=== PATIENT | female | born 2000 | race African-American/Black ===

== ENCOUNTER 2024-06-13 20:33 | Inpatient (IN) | payer MEDICAID, OTHER, SELFPAY ==
[2024-06-13 21:09] VITALS: BP 110/80; BP 119/71; PULSE 80; PULSE 90; RESP 18; TEMP 36.8; O2SAT 98; BMI 42.6
--- NOTE | 2024-06-13 21:27 | MHC.EDTECH ---
Belongings done with security: shirt, pants, sandals, cellphone - into locker 11. Belongings list says locker #5 but this was occupied.
--- NOTE | 2024-06-13 21:30 | ED.PSYCH ---
HPI - Psych General Chief Complaint: Psychiatric Symptoms Stated Complaint: psychotic outburst Time Seen by Provider: 06/13/24 21:12 Source: patient and EMS Mode of arrival: EMS Limitations: no limitations History of Present Illness ED Provider: Dr. Nicky Olivares HPI Narrative: Patient comes to the emergency room on a Section 12. Patient is on a Kike's orders, patient is not taking her medication. Patient is decompensated. Patient is not sure why she is here, talking a lot not making much sense, refusing labs, stating that she wants to go outside to smoke. Related Data Allergies Allergy/AdvReac Type Severity Reaction Status Date / Time No Known Allergies Allergy Verified 06/13/24 21:11 Review of Systems Review of Systems: Constitutional : No Weight loss, No Fever, No Chills, No Night Sweats, No Fatigue, No Malaise ENT/Mouth : No Hearing loss, No Ear Pain, No Nasal Congestion, No Sinus Pain, No Hoarseness, No sore throat, No Rhinorrhea, No Swallowing Difficulty Eyes: No Eye Pain, No Swelling, No Redness, No Foreign Body, No Discharge, No Vision Changes Cardiovascular : No Chest Pain, No SOB, No Dyspnea on Exertion, No Orthopnea, No Edema, No Palpitations Respiratory : No Cough, No Sputum, No Wheezing, No Smoke Exposure, No Dyspnea Gastrointestinal : No Nausea, No Vomiting, No Diarrhea, No Constipation, No abdominal Pain, No Hematochezia, No Melena Genitourinary : no irregular bleeding, No Dysuria, No Urinary Frequency, No Hematuria, No Urinary Incontinence, No Urgency, No Flank Pain, No Urinary Flow Changes, No Hesitancy Musculoskeletal : No joint pain, No Myalgias, No Joint Swelling Skin : No Skin Lesions, No rash Neuro : No Weakness, No Numbness, No Paresthesias, No Loss of Consciousness, No Dizziness, No Headache Psych : Denies SI or HI, patient is not sure why she is here, per EMS/PD, patient acutely decompensated Heme/Lymph: No Bruising, No Bleeding,No Lymphadenopathy Endocrine : No Polyuria, No Polydipsia, No Temperature Intolerance PMFSH Past Medical History Medical History Schizophrenia Social History Social History Do you have a plan to hurt others: No Plan Physical Exam Vital Signs: Vital Signs: Last Vital Signs Temp 98.3 F 06/13/24 21:09 Pulse 80 06/13/24 21:09 Resp 18 06/13/24 21:09 BP 119/71 06/13/24 21:09 Pulse Ox 98 06/13/24 21:09 O2 Del Method Room Air 06/13/24 21:09 BMI result Body Mass Index 42.6 Const: Other: Appearance: Alert. Oriented X3. No acute distress. Eyes: Pupils equal, round and reactive to light. ENT: Pharynx normal. Neck: Normal inspection. Neck supple. No lymph nodes noted. No crepitus CVS: Normal heart rate and rhythm. Pulses normal. Normal S1 and S2 Respiratory: No respiratory distress. Breath sounds normal. No Wheezing. No rales Abdomen: Soft and nontender. No rigidity. No distention. Skin: Skin warm and dry. Normal skin color. Normal skin turgor. Extremities: No lower extremity edema. No Lacerations. No Rash Neuro: Oriented X 3. No motor deficit. No sensory deficit. Moving all extremities. No slurred speech. CN 2 through 12 grossly intact Psych: calm, cooperative, normal affect Course Course Course Narrative: -patient does not want to give urine sample, does not want to get blood drawn. -insistent going outside to smoke. Patient declined nicotine gum or patch. -eventually, we will try to convince the patient takes medications p.o.. So far, patient is not compliant but she is not aggressive either. Very hyperverbal. -patient is on a Section 12 -all labs pending -care team consult pending Medical Decision Making Differential Diagnosis Differential Diagnoses: The differential diagnosis associated with the presentation includes (Schizophrenia, bipolar disorder) Admission/Observation Consideration of admission/observation: Escalation of care including admission/observation considered (Patient is on a Section 12, patient's seems acutely decompensated, will likely need inpatient level of care) Discharge Plan Discharge Clinical Impression: Chronic schizophrenia Patient Disposition: Still a Patient Print Language: Salvadorean
[2024-06-13 22:03] LABS: Appearance Urine Clear; Color Urine Yellow; Glucose Urine UA Negative (Negative); Leukocyte Esterase Urine Small (1+) (Negative); Nitrite Urine Negative (Negative); UMIC TRIGGER UACC YES; Urine Blood Negative (Negative); Urine Ketones Negative (Negative); Urine Protein Negative (Neg-Trace)
[2024-06-13 22:04] LABS: UPreg QC Valid YES; Urine Pregnancy NEGATIVE (NEGATIVE)
[2024-06-13 22:08] LABS: Bacteria Urine 1+ (None Seen); Hyaline Casts Urine 0-2 /LPF (0-2); RBC Urine 0-2 /HPF (0-2); UACC Culture Trigger YES
[2024-06-13 22:10] LABS: Amphetamine Screen Urine Not Detected (Not Detect); Barbiturates, Urine Not Detected (Not Detect); Benzodiazepines Screen Urine Not Detected (Not Detect); Buprenorphine Scr Not Detected (Not Detect); Cannabinoid Screen Urine Not Detected (Not Detect); Cocaine Screen Urine Not Detected (Not Detect); Fentanyl, urine Not Detected (Not Detect); Methadone Screen, Urine Not Detected (Not Detect); Opiate Screen Urine Not Detected (Not Detect); Oxycodone Screen Urine Not Detected (Not Detect); Phencyclidine Screen Urine Not Detected (Not Detect)
--- NOTE | 2024-06-13 22:20 | MHC.CARE ---
T/W spoke with Carmela (clinical director at [facility]) who reports Pt was at their [facility] since 06/08/24 . She stepped down from the [facility] after a long stay there. Pt has been med non compliant since 06/09. She is on a [facility] order. Carmela reports Pt. was very erratic today with a very labile affect. She reportedly would go from laughing hysterically to crying. She was also verbally aggressive. Carmela said [facility] tried to do a direct admit but there was an insurance issue which prevented that from happening , so she was sent here.
[2024-06-13] MEDS: HaloperidoL 5 MG TABLET PO (23:22)
[2024-06-13] MEDS: diphenhydrAMINE HCL 25 MG CAPSULE 50 MG PO (23:22)
[2024-06-13] MEDS: LORazepam 1 MG TABLET 2 MG PO (23:22)
--- NOTE | 2024-06-13 23:51 | MHC.EDTECH ---
pt refusing labs at this time.
--- NOTE | 2024-06-14 03:06 | MHC.EDTECH ---
pt continues to refuse labs.
[2024-06-14 06:24] VITALS: RESP 18
--- NOTE | 2024-06-14 07:38 | PC.NURSE ---
Assumed care of patient at 0645, patient appears to be in no apparent distress this am, sleeping, respirations even and unlabored. Per previous RN, patient was refusing labs and urine, pt also refusing to take medications. Patient comes from [facility] long-term. Continue plan of care for med clearance and CARE team milagros
--- NOTE | 2024-06-14 08:46 | PC.NURSE ---
pt continues to refuse blood work and urine sample
--- NOTE | 2024-06-14 10:31 | MHC.CARE ---
Addendum entered by Taj Miles, MS 06/14/24 10:32: Disregard initial note. Original Note: Pt will be a dual dx bedsearch
--- NOTE | 2024-06-14 12:05 | PC.NURSE ---
This RN attempted to speak with patient, patient refusing to engage
--- NOTE | 2024-06-14 12:55 | MHC.CARE ---
CARE Team calls [facility] (09) to request details on pt?s presentation and to obtain the assessment from [place] and any assessment [facility] has done.? [facility] reports they have no documentation they can provide other than a note.? At 1210, CARE Team called [facility] to request the documentation that [facility] had stated, during previous calls, that they would send.? [facility] reports that they will be faxing that information over. At 1240, CARE Team called [facility] to request the documentation that [facility] had stated, during previous calls that they would send.? [facility] reports that they faxed the information (None received), will be faxing that information over.
[2024-06-14 13:07] LABS: Basophils Percent Auto 0.4 % (0-2); Eosinophils Percent Auto 0.1 % (0-4); Hematocrit 41.5 % (37.0-47.0); Hemoglobin 13.8 g/dl (12.0-16.0); Imm Gran Abs Auto 0.03 X10*3/uL (0.00-0.03); Imm Gran Pct Auto 0.4 % (0.0-0.4); Lymphocytes Absolute Auto 2.5 X10*3/uL (1.2-4.9); Lymphocytes Percent Auto 35.8 % (20-40); MANUAL DIFF FLAG SCAN; Mean Corpuscular HGB Conc 33.3 g/dl (31.0-35.0); Mean Corpuscular Hemoglobin 30.3 pg (27.0-33.0); Mean Corpuscular Volume 91.2 fL (80.0-98.0); Mean Platelet Volume 11.6 fL (9.4-12.3); Monocytes Absolute Auto 0.6 X10*3/uL (0.1-1.2); Monocytes Percent Auto 9.1 % (2-11); NRBC Pct Auto 0.3 /100WBC (0.0-0.2); Neutrophils Absolute Auto 3.7 x10*3/uL (2.0-8.3); Neutrophils Percent Auto 54.2 % (45-73); PLT CLUMP 1; Red Blood Count 4.55 X10*6/uL (4.20-5.50); Red Cell Distribution Width 12.9 % (11.0-16.0); SCAN SMEAR FLAG 1
[2024-06-14 13:08] LABS: White Blood Count 6.8 X10*3/uL (4.8-10.8)
[2024-06-14 13:15] LABS: Alanine Aminotransferase 113 U/L (0-31); Albumin Level 4.1 g/dL (3.5-5.0); Alkaline Phosphatase 112 U/L (39-117); Anion Gap 15 (12-20); Aspartate Amino Transferase 54 U/L (5-31); Bilirubin Direct 0.1 mg/dL (0.0-0.5); Bilirubin Total 0.3 mg/dL (0.0-1.0); Blood Urea Nitrogen 9 mg/dL (9-16); Calcium 9.6 mg/dL (8.4-10.2); Carbon Dioxide 24 mmol/L (22-29); Chloride 105 mmol/L (96-108); Creatinine Clr Calc Pharmacy 162.7; Estimated Glomerular Filt Rate > 60; Ethanol < 10 mg/dL; Glucose Random 90 mg/dL (60-115); Potassium 4.4 mmol/L (3.3-5.1); Sodium 140 mmol/L (135-145); Total Protein 7.3 g/dL (6.5-8.0)
[2024-06-14 13:25] LABS: Platelet Count 230 X10*3/uL (160-400); SLIDE REVIEW VERIFIED
--- NOTE | 2024-06-14 13:44 | MHC.CARE ---
Pt will be a bedsearch
--- NOTE | 2024-06-14 13:46 | ECG_ITS ---
Test Reason : med clearance Blood Pressure : / mmHG Vent. Rate : 099 BPM Atrial Rate : 099 BPM P-R Int : 144 ms QRS Dur : 074 ms QT Int : 340 ms P-R-T Axes : 065 055 013 degrees QTc Int : 436 ms Sinus rhythm with marked sinus arrhythmia Otherwise normal ECG No previous ECGs available Referred By: Nicky Olivares Electronically Signed By:BLANCA RICH MD
[2024-06-14 14:31] VITALS: BP 134/74; PULSE 68; RESP 16; TEMP 36.7; O2SAT 97
--- NOTE | 2024-06-14 14:32 | PC.NURSE ---
Pt agreeable to EKG. Pt is calm and cooperative, no apparent distress
[2024-06-14 16:04] VITALS: BP 129/84; PULSE 102; O2SAT 98; BMI 38.3
--- NOTE | 2024-06-14 16:09 | PHA.MEDREC ---
Pharmacy Consult ? Medication Reconciliation Pharmacy has reviewed the medication reconciliation done by nursing. Received faxed med list from [facility] and made corrections. Chlorpromazine 100 mg q6h prn agitation and acetaminophen 650 mg q4h prn mild pain.
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
[2024-06-14 20:00] VITALS: BP 142/73; PULSE 108; TEMP 36.5; O2SAT 100
[2024-06-14] MEDS: Benztropine Mesylate 1 MG TABLET PO (21:22)
--- NOTE | 2024-06-15 01:28 | PC.NURSE ---
Patient has been self dialoguing and/or responding to AH and/or VH since 1999 on 06/14. Patient has been yelling and swearing. but refused all offered PRNs.
[2024-06-15 08:00] VITALS: BP 134/80; PULSE 100; TEMP 36.1; O2SAT 99
[2024-06-15] MEDS: guanFACINE HCl ER 1 MG TAB.ER.24H PO (09:16)
[2024-06-15] MEDS: chlorproMAZINE HCl 100 MG TABLET PO (14:11)
--- NOTE | 2024-06-15 15:48 | PC.NURSE ---
LATE ENTRY 06/14/24: Taylor signed a three day notice on day of admission, which will be up on 06/20/24.
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
[2024-06-15 20:00] VITALS: RESP 14
[2024-06-15] MEDS: cloZAPine 25 MG TABLET 50 MG PO (22:04)
[2024-06-15] MEDS: Benztropine Mesylate 1 MG TABLET PO (22:04)
[2024-06-16] MEDS: buPROPion HCl XL 150 MG TAB.ER.24H PO (10:36)
[2024-06-16] MEDS: guanFACINE HCl ER 1 MG TAB.ER.24H PO (10:36)
--- NOTE | 2024-06-16 11:27 | HO.PSYCHPN ---
Subjective Subjective Date of Service: 06/16/24 Reason For Visit: schizophrenia Interim History: Patient seen. She remains psychotic. Yelling and screaming intermittently. Reports she continues to have AH. She is internally preoccupied. She has been taking her medications. She has a community Kike's order. Review of Systems Review of Systems Constitutional : No Weight loss, No Fever, No Chills, No Night Sweats, No Fatigue, No Malaise ENT/Mouth : No Hearing loss, No Ear Pain, No Nasal Congestion, No Sinus Pain, No Hoarseness, No sore throat, No Rhinorrhea, No Swallowing Difficulty Eyes: No Eye Pain, No Swelling, No Redness, No Foreign Body, No Discharge, No Vision Changes Cardiovascular : No Chest Pain, No SOB, No Dyspnea on Exertion, No Orthopnea, No Edema, No Palpitations Respiratory : No Cough, No Sputum, No Wheezing, No Smoke Exposure, No Dyspnea Gastrointestinal : No Nausea, No Vomiting, No Diarrhea, No Constipation, No abdominal Pain, No Hematochezia, No Melena Genitourinary : no irregular bleeding, No Dysuria, No Urinary Frequency, No Hematuria, No Urinary Incontinence, No Urgency, No Flank Pain, No Urinary Flow Changes, No Hesitancy Musculoskeletal : No joint pain, No Myalgias, No Joint Swelling Skin : No Skin Lesions, No rash Neuro : No Weakness, No Numbness, No Paresthesias, No Loss of Consciousness, No Dizziness, No Headache Psych : Denies SI or HI, patient is not sure why she is here, per EMS/PD, patient acutely decompensated Heme/Lymph: No Bruising, No Bleeding,No Lymphadenopathy Endocrine : No Polyuria, No Polydipsia, No Temperature Intolerance Yes all other systems are reviewed and are negative Mental Status Exam Mental Status Exam Patient Appearance: Fatigued Patient Orientation: Person, Place and Situation Level of Consciousness: Alert Patient Behavior: Talkative, Distractible, Good Eye Contact and Impulsive Mood Description: Labile Affect Description: Labile Patient Cognition Impaired: Yes Ability to Follow Directions: Fair Speech Pattern: Spontaneous Speech Memory Description: Remote Impaired Hallucinations: Auditory Delusions: Paranoid Ideation Thought Process: Distracted Thought Content: positive for Preoccupation, positive for Thought Blocking and positive for Slowed Thinking Diagnostics Vital Signs (24Hr): Vital Signs - 24 hr 06/15/24 20:00 Respiratory Rate 14 BMI result Body Mass Index 38.3 Labs 06/14/24 12:53 06/14/24 12:53 Labs: Laboratory Results - last 48 hr 06/14/24 12:53 WBC 6.8 RBC 4.55 Hgb 13.8 Hct 41.5 MCV 91.2 MCH 30.3 MCHC 33.3 RDW 12.9 Plt Count 230 MPV 11.6 Immature Gran % (Auto) 0.4 Neut % (Auto) 54.2 Lymph % (Auto) 35.8 [place] % (Auto) 9.1 Eos % (Auto) 0.1 Baso % (Auto) 0.4 Lymph # (Auto) 2.5 [place] # (Auto) 0.6 Eos # (Auto) 0.0 Baso # (Auto) 0.0 Abs Immat Gran (auto) 0.03 Absolute Neuts (auto) 3.7 Absolute Nucleated RBC 0.020 H Nucleated RBC % (auto) 0.3 H Smear Tech's Comments VERIFIED Sodium 140 Potassium 4.4 Chloride 105 Carbon Dioxide 24 Anion Gap 15 BUN 9 Creatinine 0.75 Estim Creat Clear Calc 162.7 Estimated GFR > 60 Random Glucose 90 Calcium 9.6 Total Bilirubin 0.3 Direct Bilirubin 0.1 AST 54 H ALT 113 H Alkaline Phosphatase 112 Total Protein 7.3 Albumin 4.1 Ethyl Alcohol < 10 Medications Medications Current Medications Acetaminophen (Acetaminophen 325 Mg Tablet) 650 mg PO Q6H PRN PRN Reason: Headache/Pain Mild Scale (1-3) Al Hydroxide/Mg Hydroxide (Magnesium Hydrox/Alum Hydrox 30 Ml Oral.Susp) 30 ml PO Q6H PRN PRN Reason: Heartburn/Nausea Benztropine Mesylate (Benztropine Mesylate 1 Mg Tablet) 1 mg PO BEDTIME SALIMA Last Admin: 06/15/24 22:04 Dose: 1 mg Bupropion HCl (Bupropion Hcl Xl 150 Mg Tab.Er.24h) 150 mg PO DAILY SALIMA Last Admin: 06/16/24 10:36 Dose: 150 mg Chlorpromazine HCl (Chlorpromazine Hcl 100 Mg Tablet) 100 mg PO Q6H PRN PRN Reason: AGITATION Last Admin: 06/15/24 14:11 Dose: 100 mg Clozapine (Clozapine 25 Mg Tablet) 50 mg PO BEDTIME SALIMA Last Admin: 06/15/24 22:04 Dose: 50 mg Diphenhydramine HCl (Diphenhydramine Hcl 25 Mg Capsule) 50 mg PO Q6H PRN PRN Reason: agitation Guanfacine HCl (Guanfacine Hcl Er 1 Mg Tab.Er.24h) 1 mg PO DAILY SALIMA Last Admin: 06/16/24 10:36 Dose: 1 mg Magnesium Hydroxide (Milk Of Magnesia 30 Ml Oral.Susp) 30 ml PO DAILY PRN PRN Reason: Constipation Nicotine (Nicotine 21 Mg Patch.Td24) 21 mg TRANSDERMA DAILY PRN PRN Reason: nicotine cravings Nicotine Polacrilex (Nicotine Polacrilex 2 Mg Gum) 4 mg BUCCAL Q2H PRN PRN Reason: Nicotine Cravings Trazodone HCl (Trazodone Hcl 50 Mg Tablet) 50 mg PO BEDTIME MRX1 PRN PRN Reason: Insomnia Allergies Allergies Allergy/AdvReac Type Severity Reaction Status Date / Time No Known Allergies Allergy Verified 06/13/24 21:11 Assessment & Plan Assessment & Plan (1) Schizophrenia: Status: Acute Code(s): F20.9 - Schizophrenia, unspecified Plan Schizophrenia. Plan: Admit, CV, TDN, 15 minute checks Re-establish regime Clozapine titration 50 mg to begin with today. Collateral contact 06/16: Increase Clozaril to 25 mg in AM and 50 mg HS starting tomorrow. Thorazine as back up (Thorazine on Kike's court order) if patient refuses PO Clozaril. Reason for continued inpatient stay Substantial Risk for: inability to function and rapid decompensation Time Spent With Patient Time: Total time managing care of this patient today ____ minutes.
[2024-06-16] MEDS: cloZAPine 25 MG TABLET 50 MG PO (20:21)
[2024-06-16] MEDS: Benztropine Mesylate 1 MG TABLET PO (20:22)
[2024-06-16 20:39] VITALS: BP 121/66; PULSE 72; RESP 15; TEMP 37.1; O2SAT 97
[2024-06-17 08:56] VITALS: BP 124/74; PULSE 76; RESP 16; TEMP 37.1; O2SAT 98
[2024-06-17] MEDS: buPROPion HCl XL 150 MG TAB.ER.24H PO (09:11)
[2024-06-17] MEDS: guanFACINE HCl ER 1 MG TAB.ER.24H PO (09:11)
[2024-06-17] MEDS: cloZAPine 25 MG TABLET PO (09:11)
--- NOTE | 2024-06-17 11:07 | P.PNPSI_ITS ---
Subjective Subjective Date of Service: 06/17/24 Reason For Visit: schizophrenia Interim History: Patient seen. She remains psychotic. Stood for a good part of the shift in front of the nurses station. Noted to be self dialoguing, laughing loudly at times, irritable at times asking for a sandwich because there was an issue with her lunch. Argumentative. Then pleasant and calm at other times. Has been compliant with meds. Hopeful they will help. Reports AH. She is internally preoccupied. She has a community [employer] order. Review of Systems Review of Systems Constitutional : No Weight loss, No Fever, No Chills, No Night Sweats, No Fatigue, No Malaise ENT/Mouth : No Hearing loss, No Ear Pain, No Nasal Congestion, No Sinus Pain, No Hoarseness, No sore throat, No Rhinorrhea, No Swallowing Difficulty Eyes: No Eye Pain, No Swelling, No Redness, No Foreign Body, No Discharge, No Vision Changes Cardiovascular : No Chest Pain, No SOB, No Dyspnea on Exertion, No Orthopnea, No Edema, No Palpitations Respiratory : No Cough, No Sputum, No Wheezing, No Smoke Exposure, No Dyspnea Gastrointestinal : No Nausea, No Vomiting, No Diarrhea, No Constipation, No abdominal Pain, No Hematochezia, No Melena Genitourinary : no irregular bleeding, No Dysuria, No Urinary Frequency, No Hematuria, No Urinary Incontinence, No Urgency, No Flank Pain, No Urinary Flow Changes, No Hesitancy Musculoskeletal : No joint pain, No Myalgias, No Joint Swelling Skin : No Skin Lesions, No rash Neuro : No Weakness, No Numbness, No Paresthesias, No Loss of Consciousness, No Dizziness, No Headache Psych : Denies SI or HI, patient is not sure why she is here, per EMS/PD, patient acutely decompensated Heme/Lymph: No Bruising, No Bleeding,No Lymphadenopathy Endocrine : No Polyuria, No Polydipsia, No Temperature Intolerance Yes all other systems are reviewed and are negative Mental Status Exam Mental Status Exam Patient Appearance: Fatigued Patient Orientation: Person, Place and Situation Level of Consciousness: Alert Patient Behavior: Talkative, Distractible, Good Eye Contact and Impulsive Mood Description: Labile Affect Description: Labile Patient Cognition Impaired: Yes Ability to Follow Directions: Fair Speech Pattern: Spontaneous Speech Memory Description: Remote Impaired Diagnostics Vital Signs (24Hr): Vital Signs - 24 hr 06/16/24 20:39 06/17/24 08:56 Temperature 98.7 F 98.7 F Pulse Rate 72 76 Respiratory Rate 15 16 Blood Pressure 121/66 124/74 Pulse Oximetry 97 98 Oxygen Delivery Method Room Air BMI result Body Mass Index 38.3 Labs 06/14/24 12:53 06/14/24 12:53 Medications Medications Current Medications Acetaminophen (Acetaminophen 325 Mg Tablet) 650 mg PO Q6H PRN PRN Reason: Headache/Pain Mild Scale (1-3) Al Hydroxide/Mg Hydroxide (Magnesium Hydrox/Alum Hydrox 30 Ml Oral.Susp) 30 ml PO Q6H PRN PRN Reason: Heartburn/Nausea Benztropine Mesylate (Benztropine Mesylate 1 Mg Tablet) 1 mg PO BEDTIME [facility] Last Admin: 06/16/24 20:22 Dose: 1 mg Bupropion HCl (Bupropion Hcl Xl 150 Mg Tab.Er.24h) 150 mg PO DAILY [facility] Last Admin: 06/17/24 09:11 Dose: 150 mg Chlorpromazine HCl (Chlorpromazine Hcl 100 Mg Tablet) 100 mg PO Q6H PRN PRN Reason: AGITATION Last Admin: 06/15/24 14:11 Dose: 100 mg Chlorpromazine HCl (Chlorpromazine Hcl 25 Mg/Ml Ampul) 50 mg IM BID PRN PRN Reason: Refusal of PO Clozapine Clozapine (Clozapine 25 Mg Tablet) 50 mg PO BEDTIME [facility] Last Admin: 06/16/24 20:21 Dose: 50 mg Clozapine (Clozapine 25 Mg Tablet) 25 mg PO DAILY [facility] Last Admin: 06/17/24 09:11 Dose: 25 mg Diphenhydramine HCl (Diphenhydramine Hcl 25 Mg Capsule) 50 mg PO Q6H PRN PRN Reason: agitation Guanfacine HCl (Guanfacine Hcl Er 1 Mg Tab.Er.24h) 1 mg PO DAILY [facility] Last Admin: 06/17/24 09:11 Dose: 1 mg Magnesium Hydroxide (Milk Of Magnesia 30 Ml Oral.Susp) 30 ml PO DAILY PRN PRN Reason: Constipation Nicotine (Nicotine 21 Mg Patch.Td24) 21 mg TRANSDERMA DAILY PRN PRN Reason: nicotine cravings Nicotine Polacrilex (Nicotine Polacrilex 2 Mg Gum) 4 mg BUCCAL Q2H PRN PRN Reason: Nicotine Cravings Trazodone HCl (Trazodone Hcl 50 Mg Tablet) 50 mg PO BEDTIME MRX1 PRN PRN Reason: Insomnia Allergies Allergies Allergy/AdvReac Type Severity Reaction Status Date / Time No Known Allergies Allergy Verified 06/13/24 21:11 Assessment & Plan Assessment & Plan (1) Schizophrenia: Status: Acute Code(s): F20.9 - Schizophrenia, unspecified Plan Schizophrenia. Plan: Admit, CV, TDN, 15 minute checks Re-establish regime Clozapine titration 50 mg to begin with today. Collateral contact 06/16: Increase Clozaril to 25 mg in AM and 50 mg HS starting tomorrow. Thorazine as back up (Thorazine on [place] [address] order) if patient refuses PO Clozaril. : Continue titration of Clozaril per primary team. Continue current management and treatment plan. Reason for continued inpatient stay Substantial Risk for: inability to function and rapid decompensation Time Spent With Patient Time: Total time managing care of this patient today ____ minutes.
[2024-06-17 20:00] VITALS: BP 138/74; PULSE 118; RESP 15; TEMP 36.9; O2SAT 99
[2024-06-17] MEDS: Benztropine Mesylate 1 MG TABLET PO (20:20)
[2024-06-17] MEDS: cloZAPine 25 MG TABLET 50 MG PO (20:20)
[2024-06-18 08:29] VITALS: BP 99/66; PULSE 98; RESP 16; TEMP 36.5; O2SAT 99
[2024-06-18] MEDS: buPROPion HCl XL 150 MG TAB.ER.24H PO (09:29)
[2024-06-18] MEDS: guanFACINE HCl ER 1 MG TAB.ER.24H PO (09:29)
[2024-06-18] MEDS: cloZAPine 25 MG TABLET PO (09:29)
--- NOTE | 2024-06-18 16:47 | HO.PSYCHPN ---
Subjective Subjective Date of Service: 06/18/24 Reason For Visit: schizophrenia Subjective Notes: Conditional Voluntary and 3 Day Healthcare Proxy: No Guardianship: Yes Medical Problems Affecting Mental Status: No Interim History: Pt discussed TDN. She does not believe today is [place] Day, a holiday, so asked that it be proven on the internet, which was completed. Demanding to leave on 06/30, wanting her own apartment, no m[facility]p. Difficult to communicate with, demanding. Pt has an ACCS Team who team is attempting to contact. Will increase Clozapine at hs which she agrees with. Medication Compliance: Intermittent Side effects from medications: No Attending Groups: Intermittent Review of Systems Acute medical concerns: No Medical Review of Systems: unchanged Review of Systems Review of Systems Denies Mental Status Exam Mental Status Exam Patient Appearance: Fatigued Patient Orientation: Person, Place and Situation Level of Consciousness: Alert Patient Behavior: Talkative, Distractible, Good Eye Contact and Impulsive Mood Description: Labile Affect Description: Labile Patient Cognition Impaired: Yes Ability to Follow Directions: Fair Speech Pattern: Spontaneous Speech Memory Description: Remote Impaired Diagnostics Vital Signs (24Hr): Vital Signs - 24 hr 06/17/24 20:00 06/18/24 08:29 Temperature 98.4 F 97.7 F Pulse Rate 118 H 98 Respiratory Rate 15 16 Blood Pressure 138/74 99/66 Pulse Oximetry 99 99 Oxygen Delivery Method Room Air BMI result Body Mass Index 38.3 Labs 06/14/24 12:53 06/14/24 12:53 Medications Medications Current Medications Acetaminophen (Acetaminophen 325 Mg Tablet) 650 mg PO Q6H PRN PRN Reason: Headache/Pain Mild Scale (1-3) Al Hydroxide/Mg Hydroxide (Magnesium Hydrox/Alum Hydrox 30 Ml Oral.Susp) 30 ml PO Q6H PRN PRN Reason: Heartburn/Nausea Benztropine Mesylate (Benztropine Mesylate 1 Mg Tablet) 1 mg PO BEDTIME [facility] Last Admin: 06/17/24 20:20 Dose: 1 mg Bupropion HCl (Bupropion Hcl Xl 150 Mg Tab.Er.24h) 150 mg PO DAILY [facility] Last Admin: 06/18/24 09:29 Dose: 150 mg Chlorpromazine HCl (Chlorpromazine Hcl 100 Mg Tablet) 100 mg PO Q6H PRN PRN Reason: AGITATION Last Admin: 06/15/24 14:11 Dose: 100 mg Chlorpromazine HCl (Chlorpromazine Hcl 25 Mg/Ml Ampul) 50 mg IM BID PRN PRN Reason: Refusal of PO Clozapine Clozapine (Clozapine 25 Mg Tablet) 25 mg PO DAILY [facility] Last Admin: 06/18/24 09:29 Dose: 25 mg Clozapine (Clozapine 25 Mg Tablet) 75 mg PO BEDTIME [facility] Diphenhydramine HCl (Diphenhydramine Hcl 25 Mg Capsule) 50 mg PO Q6H PRN PRN Reason: agitation Guanfacine HCl (Guanfacine Hcl Er 1 Mg Tab.Er.24h) 1 mg PO DAILY [facility] Last Admin: 06/18/24 09:29 Dose: 1 mg Magnesium Hydroxide (Milk Of Magnesia 30 Ml Oral.Susp) 30 ml PO DAILY PRN PRN Reason: Constipation Nicotine (Nicotine 21 Mg Patch.Td24) 21 mg TRANSDERMA DAILY PRN PRN Reason: nicotine cravings Nicotine Polacrilex (Nicotine Polacrilex 2 Mg Gum) 4 mg BUCCAL Q2H PRN PRN Reason: Nicotine Cravings Prazosin HCl (Prazosin Hcl 1 Mg Capsule) 1 mg PO BEDTIME PRN; Protocol PRN Reason: nightmares Trazodone HCl (Trazodone Hcl 50 Mg Tablet) 50 mg PO BEDTIME MRX1 PRN PRN Reason: Insomnia Allergies Allergies Allergy/AdvReac Type Severity Reaction Status Date / Time No Known Allergies Allergy Verified 06/13/24 21:11 Assessment & Plan Assessment & Plan (1) Schizophrenia: Status: Acute Code(s): F20.9 - Schizophrenia, unspecified Plan Schizophrenia. Plan: Admit, CV, TDN, 15 minute checks Re-establish regime Clozapine titration 50 mg to begin with today. Collateral contact 06/16: Increase Clozaril to 25 mg in AM and 50 mg HS starting tomorrow. Thorazine as back up (Thorazine on [place] [address] order) if patient refuses PO Clozaril. : Continue titration of Clozaril per primary team. Continue current management and treatment plan. 06/18: Increase HS Clozaril to 75 mg. Continue AM Clozaril of 25 mg. TDN to 06/20. Reason for continued inpatient stay Substantial Risk for: rapid decompensation Time Spent With Patient Time: Total time managing care of this patient today ____ minutes.
[2024-06-18 19:49] VITALS: BP 128/80; PULSE 110; RESP 16; TEMP 36.8; O2SAT 100
[2024-06-18] MEDS: Benztropine Mesylate 1 MG TABLET PO (20:56)
[2024-06-18] MEDS: cloZAPine 25 MG TABLET 75 MG PO (20:56)
[2024-06-19 08:00] VITALS: BP 121/81; PULSE 138; RESP 20; TEMP 36.2; O2SAT 98
[2024-06-19] MEDS: guanFACINE HCl ER 1 MG TAB.ER.24H PO (08:24)
[2024-06-19] MEDS: buPROPion HCl XL 150 MG TAB.ER.24H PO (08:24)
[2024-06-19] MEDS: cloZAPine 25 MG TABLET PO (08:24)
--- NOTE | 2024-06-19 10:44 | P.PNPSI_ITS ---
Subjective Subjective Date of Service: 06/19/24 Reason For Visit: schizophrenia Subjective Notes: 3 Day Healthcare Proxy: No Guardianship: No Medical Problems Affecting Mental Status: No Interim History: Labile, decreasing episodic outbursts. Altercation with a peer. Poor sleep, team reports minimal to no sleep, laughs maniacally at times- loud, extreme. Accepts scheduled medications, refuses PRN Clozapine titration continues. Napping when attempted to meet with pt this afternoon. No questions or concerns expressed when seen earlier in the day. Medication Compliance: Yes Side effects from medications: No Attending Groups: No Review of Systems Acute medical concerns: No Medical Review of Systems: unchanged Review of Systems Review of Systems Pt denies Mental Status Exam Mental Status Exam Patient Appearance: Fatigued Patient Orientation: Person, Place and Situation Level of Consciousness: Alert Patient Behavior: Talkative, Distractible, Good Eye Contact and Impulsive Mood Description: Labile Affect Description: Labile Patient Cognition Impaired: Yes Ability to Follow Directions: Fair Speech Pattern: Spontaneous Speech Memory Description: Remote Impaired Diagnostics Vital Signs (24Hr): Vital Signs - 24 hr 06/18/24 19:49 06/19/24 08:00 Temperature 98.2 F 97.1 F Pulse Rate 110 H 138 H Respiratory Rate 16 20 Blood Pressure 128/80 121/81 Pulse Oximetry 100 98 Oxygen Delivery Method Room Air Room Air BMI result Body Mass Index 38.3 Labs 06/14/24 12:53 06/14/24 12:53 Medications Medications Current Medications Acetaminophen (Acetaminophen 325 Mg Tablet) 650 mg PO Q6H PRN PRN Reason: Headache/Pain Mild Scale (1-3) Al Hydroxide/Mg Hydroxide (Magnesium Hydrox/Alum Hydrox 30 Ml Oral.Susp) 30 ml PO Q6H PRN PRN Reason: Heartburn/Nausea Benztropine Mesylate (Benztropine Mesylate 1 Mg Tablet) 1 mg PO BEDTIME [facility] Last Admin: 06/18/24 20:56 Dose: 1 mg Bupropion HCl (Bupropion Hcl Xl 150 Mg Tab.Er.24h) 150 mg PO DAILY [facility] Last Admin: 06/19/24 08:24 Dose: 150 mg Chlorpromazine HCl (Chlorpromazine Hcl 100 Mg Tablet) 100 mg PO Q6H PRN PRN Reason: AGITATION Last Admin: 06/15/24 14:11 Dose: 100 mg Chlorpromazine HCl (Chlorpromazine Hcl 25 Mg/Ml Ampul) 50 mg IM BID PRN PRN Reason: Refusal of PO Clozapine Clozapine (Clozapine 25 Mg Tablet) 25 mg PO DAILY [facility] Last Admin: 06/19/24 08:24 Dose: 25 mg Clozapine (Clozapine 25 Mg Tablet) 75 mg PO BEDTIME [facility] Last Admin: 06/18/24 20:56 Dose: 75 mg Diphenhydramine HCl (Diphenhydramine Hcl 25 Mg Capsule) 50 mg PO Q6H PRN PRN Reason: agitation Guanfacine HCl (Guanfacine Hcl Er 1 Mg Tab.Er.24h) 1 mg PO DAILY [facility] Last Admin: 06/19/24 08:24 Dose: 1 mg Magnesium Hydroxide (Milk Of Magnesia 30 Ml Oral.Susp) 30 ml PO DAILY PRN PRN Reason: Constipation Nicotine (Nicotine 21 Mg Patch.Td24) 21 mg TRANSDERMA DAILY PRN PRN Reason: nicotine cravings Nicotine Polacrilex (Nicotine Polacrilex 2 Mg Gum) 4 mg BUCCAL Q2H PRN PRN Reason: Nicotine Cravings Prazosin HCl (Prazosin Hcl 1 Mg Capsule) 1 mg PO BEDTIME PRN; Protocol PRN Reason: nightmares Trazodone HCl (Trazodone Hcl 50 Mg Tablet) 50 mg PO BEDTIME MRX1 PRN PRN Reason: Insomnia Allergies Allergies Allergy/AdvReac Type Severity Reaction Status Date / Time No Known Allergies Allergy Verified 06/13/24 21:11 Assessment & Plan Assessment & Plan (1) Schizophrenia: Status: Acute Code(s): F20.9 - Schizophrenia, unspecified Plan Schizophrenia. Plan: Admit, CV, TDN, 15 minute checks Re-establish regime Clozapine titration 50 mg to begin with today. Collateral contact 06/16: Increase Clozaril to 25 mg in AM and 50 mg HS starting tomorrow. Thorazine as back up (Thorazine on [place] order) if patient refuses PO Clozaril. 06/17: Continue titration of Clozaril per primary team. Continue current management and treatment plan. 06/19: Continue Clozaril titration. TDN to 06/20. Reason for continued inpatient stay Substantial Risk for: rapid decompensation Time Spent With Patient Time: Total time managing care of this patient today ____ minutes.
[2024-06-19 19:58] VITALS: BP 130/84; PULSE 118; TEMP 36.7; O2SAT 100
[2024-06-19] MEDS: traZODone HCL 50 MG TABLET PO (20:45)
[2024-06-19] MEDS: Benztropine Mesylate 1 MG TABLET PO (20:45)
[2024-06-19] MEDS: cloZAPine 25 MG TABLET 75 MG PO (20:45)
[2024-06-20 07:46] VITALS: BP 131/71; PULSE 112; TEMP 36.4; O2SAT 99
[2024-06-20] MEDS: guanFACINE HCl ER 1 MG TAB.ER.24H PO (07:58)
[2024-06-20] MEDS: buPROPion HCl XL 150 MG TAB.ER.24H PO (07:59)
[2024-06-20] MEDS: cloZAPine 25 MG TABLET PO (07:59)
[2024-06-20] MEDS: chlorproMAZINE HCl 100 MG TABLET PO (16:18)
--- NOTE | 2024-06-20 17:37 | P.PNPSI_ITS ---
Subjective Subjective Date of Service: 06/20/24 Reason For Visit: schizophrenia Subjective Notes: Section 7 and 3 Day Healthcare Proxy: No Guardianship: Yes Medical Problems Affecting Mental Status: No Interim History: Labile, self-dialoguing, psychosis persists section seven filed. Accepting Clozaril titration. Pt wanting to discharge to a hotel. She has never lived independently. Her ACCS team sent some data from recent [facility] admission. IQ 59 indicating impairment and increase in risk if pt is sent into the community alone. Pt resistant to taking medicine, however accepting what is currently ordered. Refuses prns. Message left with guardian to discuss mood stabilizer addition to replace Wellbutrin which may bring about improved stabilization. Discussed with pt the need to discuss her case with a manager strategic. Discussed concern for her in community without support and guidance. I can beat someone as good as anyone-I can care for myself. Outlined more specific concerns about her potential to be taken advantage of, presence of continued sx which may promote her not to be as attentive to environment. Pt agrees we should discuss with the manager strategic. Medication Compliance: Yes Side effects from medications: No Attending Groups: No Review of Systems Acute medical concerns: No Medical Review of Systems: unchanged Review of Systems Review of Systems Denies Mental Status Exam Mental Status Exam Patient Appearance: Fatigued Patient Orientation: Person, Place and Situation Level of Consciousness: Alert Patient Behavior: Talkative (self dialogues), Distractible, Good Eye Contact and Impulsive Mood Description: Labile Affect Description: Labile Patient Cognition Impaired: Yes Ability to Follow Directions: Fair Speech Pattern: Spontaneous Speech Memory Description: Remote Impaired Hallucinations: Auditory Delusions: Grandiose and Present Thought Process: Distracted Thought Content: positive for Perseveration, positive for Loose Associations and positive for Tangential Abnormal Motor Activity Signs and Symptoms: Restlessness Judgement: Poor Diagnostics Vital Signs (24Hr): Vital Signs - 24 hr 06/19/24 19:58 06/20/24 07:46 Temperature 98.0 F 97.5 F Pulse Rate 118 H 112 H Blood Pressure 130/84 131/71 Pulse Oximetry 100 99 Oxygen Delivery Method Room Air Room Air BMI result Body Mass Index 38.3 Labs 06/14/24 12:53 06/14/24 12:53 Medications Medications Current Medications Acetaminophen (Acetaminophen 325 Mg Tablet) 650 mg PO Q6H PRN PRN Reason: Headache/Pain Mild Scale (1-3) Al Hydroxide/Mg Hydroxide (Magnesium Hydrox/Alum Hydrox 30 Ml Oral.Susp) 30 ml PO Q6H PRN PRN Reason: Heartburn/Nausea Benztropine Mesylate (Benztropine Mesylate 1 Mg Tablet) 1 mg PO BEDTIME [facility] Last Admin: 06/19/24 20:45 Dose: 1 mg Bupropion HCl (Bupropion Hcl Xl 150 Mg Tab.Er.24h) 150 mg PO DAILY [facility] Last Admin: 06/20/24 07:59 Dose: 150 mg Chlorpromazine HCl (Chlorpromazine Hcl 100 Mg Tablet) 100 mg PO Q6H PRN PRN Reason: AGITATION Last Admin: 06/20/24 16:18 Dose: 100 mg Chlorpromazine HCl (Chlorpromazine Hcl 25 Mg/Ml Ampul) 50 mg IM BID PRN PRN Reason: Refusal of PO Clozapine Clozapine (Clozapine 25 Mg Tablet) 25 mg PO DAILY [facility] Last Admin: 06/20/24 07:59 Dose: 25 mg Clozapine (Clozapine 25 Mg Tablet) 75 mg PO BEDTIME [facility] Last Admin: 06/19/24 20:45 Dose: 75 mg Diphenhydramine HCl (Diphenhydramine Hcl 25 Mg Capsule) 50 mg PO Q6H PRN PRN Reason: agitation Guanfacine HCl (Guanfacine Hcl Er 1 Mg Tab.Er.24h) 1 mg PO DAILY [facility] Last Admin: 06/20/24 07:58 Dose: 1 mg Magnesium Hydroxide (Milk Of Magnesia 30 Ml Oral.Susp) 30 ml PO DAILY PRN PRN Reason: Constipation Nicotine (Nicotine 21 Mg Patch.Td24) 21 mg TRANSDERMA DAILY PRN PRN Reason: nicotine cravings Nicotine Polacrilex (Nicotine Polacrilex 2 Mg Gum) 4 mg BUCCAL Q2H PRN PRN Reason: Nicotine Cravings Prazosin HCl (Prazosin Hcl 1 Mg Capsule) 1 mg PO BEDTIME PRN; Protocol PRN Reason: nightmares Trazodone HCl (Trazodone Hcl 50 Mg Tablet) 50 mg PO BEDTIME MRX1 PRN PRN Reason: Insomnia Last Admin: 06/19/24 20:45 Dose: 50 mg Allergies Allergies Allergy/AdvReac Type Severity Reaction Status Date / Time No Known Allergies Allergy Verified 06/13/24 21:11 Assessment & Plan Assessment & Plan (1) Schizophrenia: Status: Acute Code(s): F20.9 - Schizophrenia, unspecified Plan Schizophrenia. Plan: Admit, CV, TDN, 15 minute checks Re-establish regime Clozapine titration 50 mg to begin with today. Collateral contact 06/16: Increase Clozaril to 25 mg in AM and 50 mg HS starting tomorrow. Thorazine as back up (Thorazine on [place] order) if patient refuses PO Clozaril. : Continue titration of Clozaril per primary team. Continue current management and treatment plan. 06/18: Increase HS Clozaril to 75 mg. Continue AM Clozaril of 25 mg. TDN to 06/20. 06/20: Section Seven filed Continue Clozaril titration. Reason for continued inpatient stay Substantial Risk for: rapid decompensation Time Spent With Patient Time: Total time managing care of this patient today ____ minutes.
[2024-06-20] MEDS: cloZAPine 100 MG TABLET PO (21:09)
[2024-06-20] MEDS: Benztropine Mesylate 1 MG TABLET PO (21:09)
[2024-06-20] MEDS: traZODone HCL 50 MG TABLET PO (21:40)
[2024-06-21 08:00] VITALS: BP 125/65; PULSE 111; RESP 16; TEMP 36.4; O2SAT 100
[2024-06-21] MEDS: buPROPion HCl XL 150 MG TAB.ER.24H PO (09:12)
[2024-06-21] MEDS: cloZAPine 25 MG TABLET PO (09:12)
[2024-06-21] MEDS: guanFACINE HCl ER 1 MG TAB.ER.24H PO (09:12)
[2024-06-21] MEDS: chlorproMAZINE HCl 25 MG TABLET 50 MG PO (12:09)
--- NOTE | 2024-06-21 18:29 | HO.PSYCHPN ---
Subjective Subjective Date of Service: 06/21/24 Reason For Visit: schizophrenia Subjective Notes: Section 7 Healthcare Proxy: No Guardianship: No Medical Problems Affecting Mental Status: No Interim History: Slept only 2 hours. Care discussed with guardian who is concerned about pt being independent in community as by history, she has had altercations with police and has placed herself at risk. Guardian asks if a Miles trial can be completed. Pt will not accept this PO med or labs. She is accepting of Chlorpromazine . Discussed wanting to live on her own, live in a hotel, not wanting to use medication but to be free . Demanding of making a court date change. Discussed the court needing to manage their schedule and our need for respect for this. She disagrees, Call him and tell him tomorrow at 2pm. Calmer in the milieu with increase in appropriate behaviors. Medication Compliance: Intermittent Side effects from medications: No Attending Groups: Intermittent Review of Systems Acute medical concerns: No Medical Review of Systems: unchanged Mental Status Exam Mental Status Exam Patient Appearance: Appropriate Patient Orientation: Person, Place and Situation Level of Consciousness: Alert Patient Behavior: Talkative (self dialogues), Distractible, Good Eye Contact and Impulsive Mood Description: Labile Affect Description: Labile Patient Cognition Impaired: Yes Ability to Follow Directions: Fair Speech Pattern: Spontaneous Speech Memory Description: Remote Impaired Hallucinations: Auditory Delusions: Grandiose and Present Thought Process: Distracted Thought Content: positive for Perseveration, positive for Loose Associations and positive for Tangential Depressive Symptoms: Increased Irritability (decreasing) Abnormal Motor Activity Signs and Symptoms: Restlessness Judgement: Poor Diagnostics Vital Signs (24Hr): Vital Signs - 24 hr 06/21/24 08:00 Temperature 97.5 F Pulse Rate 111 H Respiratory Rate 16 Blood Pressure 125/65 Pulse Oximetry 100 Oxygen Delivery Method Room Air BMI result Body Mass Index 38.3 Labs 06/14/24 12:53 06/14/24 12:53 Medications Medications Current Medications Acetaminophen (Acetaminophen 325 Mg Tablet) 650 mg PO Q6H PRN PRN Reason: Headache/Pain Mild Scale (1-3) Al Hydroxide/Mg Hydroxide (Magnesium Hydrox/Alum Hydrox 30 Ml Oral.Susp) 30 ml PO Q6H PRN PRN Reason: Heartburn/Nausea Benztropine Mesylate (Benztropine Mesylate 1 Mg Tablet) 1 mg PO BEDTIME [facility] Last Admin: 06/20/24 21:09 Dose: 1 mg Chlorpromazine HCl (Chlorpromazine Hcl 100 Mg Tablet) 100 mg PO Q6H PRN PRN Reason: AGITATION Last Admin: 06/20/24 16:18 Dose: 100 mg Chlorpromazine HCl (Chlorpromazine Hcl 25 Mg/Ml Ampul) 50 mg IM BID PRN PRN Reason: Refusal of PO Clozapine Chlorpromazine HCl (Chlorpromazine Hcl 100 Mg Tablet) 100 mg PO BID [facility] Chlorpromazine HCl (Chlorpromazine Hcl 25 Mg/Ml Ampul) 100 mg IM BID PRN PRN Reason: if pt refuses PO-[facility] order Clozapine (Clozapine 25 Mg Tablet) 25 mg PO DAILY [facility] Last Admin: 06/21/24 09:12 Dose: 25 mg Clozapine (Clozapine 100 Mg Tablet) 100 mg PO BEDTIME [facility] Last Admin: 06/20/24 21:09 Dose: 100 mg Diphenhydramine HCl (Diphenhydramine Hcl 25 Mg Capsule) 50 mg PO Q6H PRN PRN Reason: agitation Guanfacine HCl (Guanfacine Hcl Er 1 Mg Tab.Er.24h) 1 mg PO DAILY [facility] Last Admin: 06/21/24 09:12 Dose: 1 mg Miles Carbonate (Miles Carbonate 300 Mg Capsule) 300 mg PO BID [facility] Last Admin: 06/21/24 12:14 Dose: Not Given Magnesium Hydroxide (Milk Of Magnesia 30 Ml Oral.Susp) 30 ml PO DAILY PRN PRN Reason: Constipation Nicotine (Nicotine 21 Mg Patch.Td24) 21 mg TRANSDERMA DAILY PRN PRN Reason: nicotine cravings Nicotine Polacrilex (Nicotine Polacrilex 2 Mg Gum) 4 mg BUCCAL Q2H PRN PRN Reason: Nicotine Cravings Prazosin HCl (Prazosin Hcl 1 Mg Capsule) 1 mg PO BEDTIME PRN; Protocol PRN Reason: nightmares Trazodone HCl (Trazodone Hcl 50 Mg Tablet) 50 mg PO BEDTIME MRX1 PRN PRN Reason: Insomnia Last Admin: 06/20/24 21:40 Dose: 50 mg Allergies Allergies Allergy/AdvReac Type Severity Reaction Status Date / Time No Known Allergies Allergy Verified 06/13/24 21:11 Assessment & Plan Assessment & Plan (1) Schizophrenia: Status: Acute Code(s): F20.9 - Schizophrenia, unspecified Plan Schizophrenia. Plan: Admit, CV, TDN, 15 minute checks Re-establish regime Clozapine titration 50 mg to begin with today. Collateral contact 06/16: Increase Clozaril to 25 mg in AM and 50 mg HS starting tomorrow. Thorazine as back up (Thorazine on [place] order) if patient refuses PO Clozaril. : Continue titration of Clozaril per primary team. Continue current management and treatment plan. 06/18: Increase HS Clozaril to 75 mg. Continue AM Clozaril of 25 mg. TDN to 06/20. 06/20: Section Seven filed Continue Clozaril titration. 06/21: Miles 300 mg bid-pt refuses meds, labls Schedule chlorpromazine- pt reports she will accept this. Reason for continued inpatient stay Substantial Risk for: rapid decompensation Time Spent With Patient Time: Total time managing care of this patient today ____ minutes.
[2024-06-21] MEDS: Benztropine Mesylate 1 MG TABLET PO (21:48)
[2024-06-21] MEDS: chlorproMAZINE HCl 100 MG TABLET PO (21:48)
[2024-06-21] MEDS: cloZAPine 100 MG TABLET PO (21:48)
[2024-06-22 08:00] VITALS: BP 142/87; PULSE 108; RESP 16; TEMP 36.3; O2SAT 100
[2024-06-22] MEDS: chlorproMAZINE HCl 100 MG TABLET PO (08:12)
[2024-06-22] MEDS: guanFACINE HCl ER 1 MG TAB.ER.24H PO (08:12)
[2024-06-22] MEDS: cloZAPine 25 MG TABLET PO (08:13)
--- NOTE | 2024-06-22 09:50 | HO.PSYCHPN ---
Subjective Subjective Date of Service: 06/22/24 Reason For Visit: schizophrenia Subjective Notes: Section 7 Healthcare Proxy: No Guardianship: No Medical Problems Affecting Mental Status: No Interim History: Refuses [place]. Refuses Clozapine labs and med Agrees to increase Chlorpromazine Team report self-dialoguing and yelling in her room. Pt remains confrontive-demanding her court date for today, not responsive to attempts to provide education. Medication Compliance: No Side effects from medications: No Attending Groups: No Review of Systems Acute medical concerns: No Medical Review of Systems: unchanged Review of Systems Review of Systems Denies Mental Status Exam Mental Status Exam Patient Appearance: Appropriate Patient Orientation: Person, Place and Situation Level of Consciousness: Alert Patient Behavior: Talkative (self dialogues), Distractible, Good Eye Contact and Impulsive Mood Description: Labile Affect Description: Labile Patient Cognition Impaired: Yes Ability to Follow Directions: Fair Speech Pattern: Spontaneous Speech Memory Description: Remote Impaired Hallucinations: Auditory Delusions: Grandiose and Present Thought Process: Distracted Thought Content: positive for Perseveration, positive for Loose Associations and positive for Tangential Depressive Symptoms: Increased Irritability (decreasing) Abnormal Motor Activity Signs and Symptoms: Restlessness Judgement: Poor Diagnostics Vital Signs (24Hr): Vital Signs - 24 hr 06/22/24 08:00 Temperature 97.3 F Pulse Rate 108 H Respiratory Rate 16 Blood Pressure 142/87 H Pulse Oximetry 100 BMI result Body Mass Index 38.3 Labs 06/14/24 12:53 06/14/24 12:53 Medications Medications Current Medications Acetaminophen (Acetaminophen 325 Mg Tablet) 650 mg PO Q6H PRN PRN Reason: Headache/Pain Mild Scale (1-3) Al Hydroxide/Mg Hydroxide (Magnesium Hydrox/Alum Hydrox 30 Ml Oral.Susp) 30 ml PO Q6H PRN PRN Reason: Heartburn/Nausea Benztropine Mesylate (Benztropine Mesylate 1 Mg Tablet) 1 mg PO BEDTIME SALIMA Last Admin: 06/21/24 21:48 Dose: 1 mg Chlorpromazine HCl (Chlorpromazine Hcl 100 Mg Tablet) 100 mg PO Q6H PRN PRN Reason: AGITATION Last Admin: 06/20/24 16:18 Dose: 100 mg Chlorpromazine HCl (Chlorpromazine Hcl 25 Mg/Ml Ampul) 50 mg IM BID PRN PRN Reason: Refusal of PO Clozapine Chlorpromazine HCl (Chlorpromazine Hcl 100 Mg Tablet) 100 mg PO BID [facility] Last Admin: 06/22/24 08:12 Dose: 100 mg Chlorpromazine HCl (Chlorpromazine Hcl 25 Mg/Ml Ampul) 100 mg IM BID PRN PRN Reason: if pt refuses PO-Horner order Clozapine (Clozapine 25 Mg Tablet) 25 mg PO DAILY [facility] Last Admin: 06/22/24 08:13 Dose: 25 mg Clozapine (Clozapine 100 Mg Tablet) 100 mg PO BEDTIME [facility] Last Admin: 06/21/24 21:48 Dose: 100 mg Diphenhydramine HCl (Diphenhydramine Hcl 25 Mg Capsule) 50 mg PO Q6H PRN PRN Reason: agitation Guanfacine HCl (Guanfacine Hcl Er 1 Mg Tab.Er.24h) 1 mg PO DAILY [facility] Last Admin: 06/22/24 08:12 Dose: 1 mg [place] Carbonate ([place] Carbonate 300 Mg Capsule) 300 mg PO BID [facility] Last Admin: 06/22/24 08:17 Dose: Not Given Magnesium Hydroxide (Milk Of Magnesia 30 Ml Oral.Susp) 30 ml PO DAILY PRN PRN Reason: Constipation Nicotine (Nicotine 21 Mg Patch.Td24) 21 mg TRANSDERMA DAILY PRN PRN Reason: nicotine cravings Nicotine Polacrilex (Nicotine Polacrilex 2 Mg Gum) 4 mg BUCCAL Q2H PRN PRN Reason: Nicotine Cravings Prazosin HCl (Prazosin Hcl 1 Mg Capsule) 1 mg PO BEDTIME PRN; Protocol PRN Reason: nightmares Trazodone HCl (Trazodone Hcl 50 Mg Tablet) 50 mg PO BEDTIME MRX1 PRN PRN Reason: Insomnia Last Admin: 06/20/24 21:40 Dose: 50 mg Allergies Allergies Allergy/AdvReac Type Severity Reaction Status Date / Time No Known Allergies Allergy Verified 06/13/24 21:11 Assessment & Plan Assessment & Plan (1) Schizophrenia: Status: Acute Code(s): F20.9 - Schizophrenia, unspecified Plan Schizophrenia. Plan: Admit, CV, TDN, 15 minute checks Re-establish regime Clozapine titration 50 mg to begin with today. Collateral contact 06/16: Increase Clozaril to 25 mg in AM and 50 mg HS starting tomorrow. Thorazine as back up (Thorazine on [place] [address] order) if patient refuses PO Clozaril. : Continue titration of Clozaril per primary team. Continue current management and treatment plan. 06/18: Increase HS Clozaril to 75 mg. Continue AM Clozaril of 25 mg. TDN to 06/20. 06/20: Section Seven filed Continue Clozaril titration. 06/22: DC Clozaril-refused labs,dosing DC [place]-refused labs, dosing Increase Chlorpromazine to 150 mg bid Reason for continued inpatient stay Substantial Risk for: rapid decompensation Time Spent With Patient Time: Total time managing care of this patient today ____ minutes.
[2024-06-22] MEDS: chlorproMAZINE HCl 25 MG TABLET 150 MG PO (22:05)
[2024-06-22] MEDS: Benztropine Mesylate 1 MG TABLET PO (22:05)
--- NOTE | 2024-06-23 03:20 | PC.NURSE ---
Early in the evening Taylor was in the kitchen when several other patients who were also in the kitchen started to complain Taylor came out to the corridor and was self dialoguing and laughing aloud to herself. The other patients were complaining that she was intentionally passing flatus and laughing . The air in the kitchen was very malodorous.
[2024-06-23 08:00] VITALS: BP 129/71; PULSE 96; TEMP 36.3; O2SAT 96
[2024-06-23] MEDS: guanFACINE HCl ER 1 MG TAB.ER.24H PO (08:50)
[2024-06-23] MEDS: chlorproMAZINE HCl 25 MG TABLET 150 MG PO ×2 (08:50→20:48)
--- NOTE | 2024-06-23 10:07 | P.PNPSI_ITS ---
Subjective Subjective Date of Service: 06/23/24 Reason For Visit: schizophrenia Subjective Notes: Section 7 Interim History: Patient was seen and discussed in rounds today. Records and plans were reviewed. She continues to be responding internal stimuli. She has been medication compliant. Some episodes of yelling and is internally preoccupied. Thorazine was increased and tolerated. No changes were made today Mental Status Exam Mental Status Exam Narrative: In today's visit she is alert, pleasant and interactive. Speech is soft-spoken. Minimal eye contact. Affect is appropriate but has been observed with inappropriate laughter. Has had auditory hallucinations. And appears internally preoccupied. Cognitively could not be tested. Judgment is marginal. Diagnostics Vital Signs (24Hr): BMI result Body Mass Index 38.3 Labs 06/14/24 12:53 06/14/24 12:53 Medications Medications Current Medications Acetaminophen (Acetaminophen 325 Mg Tablet) 650 mg PO Q6H PRN PRN Reason: Headache/Pain Mild Scale (1-3) Al Hydroxide/Mg Hydroxide (Magnesium Hydrox/Alum Hydrox 30 Ml Oral.Susp) 30 ml PO Q6H PRN PRN Reason: Heartburn/Nausea Benztropine Mesylate (Benztropine Mesylate 1 Mg Tablet) 1 mg PO BEDTIME [facility] Last Admin: 06/22/24 22:05 Dose: 1 mg Chlorpromazine HCl (Chlorpromazine Hcl 100 Mg Tablet) 100 mg PO Q6H PRN PRN Reason: AGITATION Last Admin: 06/20/24 16:18 Dose: 100 mg Chlorpromazine HCl (Chlorpromazine Hcl 25 Mg/Ml Ampul) 150 mg IM BID PRN PRN Reason: if pt refuses PO-Horner order Chlorpromazine HCl (Chlorpromazine Hcl 25 Mg Tablet) 150 mg PO BID [facility] Last Admin: 06/23/24 08:50 Dose: 150 mg Diphenhydramine HCl (Diphenhydramine Hcl 25 Mg Capsule) 50 mg PO Q6H PRN PRN Reason: agitation Guanfacine HCl (Guanfacine Hcl Er 1 Mg Tab.Er.24h) 1 mg PO DAILY [facility] Last Admin: 06/23/24 08:50 Dose: 1 mg Magnesium Hydroxide (Milk Of Magnesia 30 Ml Oral.Susp) 30 ml PO DAILY PRN PRN Reason: Constipation Nicotine (Nicotine 21 Mg Patch.Td24) 21 mg TRANSDERMA DAILY PRN PRN Reason: nicotine cravings Nicotine Polacrilex (Nicotine Polacrilex 2 Mg Gum) 4 mg BUCCAL Q2H PRN PRN Reason: Nicotine Cravings Prazosin HCl (Prazosin Hcl 1 Mg Capsule) 1 mg PO BEDTIME PRN; Protocol PRN Reason: nightmares Trazodone HCl (Trazodone Hcl 50 Mg Tablet) 50 mg PO BEDTIME MRX1 PRN PRN Reason: Insomnia Last Admin: 06/20/24 21:40 Dose: 50 mg Allergies Allergies Allergy/AdvReac Type Severity Reaction Status Date / Time No Known Allergies Allergy Verified 06/13/24 21:11 Assessment & Plan Assessment & Plan (1) Schizophrenia: Status: Acute Code(s): F20.9 - Schizophrenia, unspecified Plan Schizophrenia. Plan: Admit, CV, TDN, 15 minute checks Re-establish regime Clozapine titration 50 mg to begin with today. Collateral contact 06/16: Increase Clozaril to 25 mg in AM and 50 mg HS starting tomorrow. Thorazine as back up (Thorazine on [place] [address] order) if patient refuses PO Clozaril. : Continue titration of Clozaril per primary team. Continue current management and treatment plan. 06/18: Increase HS Clozaril to 75 mg. Continue AM Clozaril of 25 mg. TDN to 06/20. 06/20: Section Seven filed Continue Clozaril titration. 06/22: DC Clozaril-refused labs,dosing DC [place]-refused labs, dosing Increase Chlorpromazine to 150 mg bid 06/23: Continue current regimen and plans for stabilization and medication management Reason for continued inpatient stay Substantial Risk for: med/psych decompensation Time Spent With Patient Time: Total time managing care of this patient today ____ minutes.
[2024-06-23] MEDS: Benztropine Mesylate 1 MG TABLET PO (20:48)
[2024-06-24] MEDS: guanFACINE HCl ER 1 MG TAB.ER.24H PO (08:43)
[2024-06-24] MEDS: chlorproMAZINE HCl 25 MG TABLET 150 MG PO ×2 (08:44→20:35)
--- NOTE | 2024-06-24 09:54 | HO.PSYCHPN ---
Subjective Subjective Date of Service: 06/24/24 Reason For Visit: schizophrenia Subjective Notes: Section 7 Interim History: Patient was seen and discussed in rounds today. Records and plans were reviewed. She continues to have some depression, response to internal stimuli and anxiety. Some inappropriate behavior but not to problematically. She wanted me to request that her provider allow her to use her head phone as she is aware that another patient has that privilege. I told her that I could not change that but will mention that in my note and she can talk to her provider tomorrow. No changes were made today. Eating and sleeping adequately. No side effects reported. No active SI Review of Systems Review of Systems Yes all other systems are reviewed and are negative Mental Status Exam Mental Status Exam Narrative: In today's visit she is alert, pleasant and interactive. Speech is soft-spoken. Minimal eye contact. Affect is appropriate but has been observed with inappropriate laughter. She is able to move all her limbs. No abnormalities of gait. Has had auditory hallucinations. And appears internally preoccupied. Cognitively could not be tested. Judgment is marginal. Diagnostics Vital Signs (24Hr): BMI result Body Mass Index 38.3 Labs 06/14/24 12:53 06/14/24 12:53 Medications Medications Current Medications Acetaminophen (Acetaminophen 325 Mg Tablet) 650 mg PO Q6H PRN PRN Reason: Headache/Pain Mild Scale (1-3) Al Hydroxide/Mg Hydroxide (Magnesium Hydrox/Alum Hydrox 30 Ml Oral.Susp) 30 ml PO Q6H PRN PRN Reason: Heartburn/Nausea Benztropine Mesylate (Benztropine Mesylate 1 Mg Tablet) 1 mg PO BEDTIME [facility] Last Admin: 06/23/24 20:48 Dose: 1 mg Chlorpromazine HCl (Chlorpromazine Hcl 100 Mg Tablet) 100 mg PO Q6H PRN PRN Reason: AGITATION Last Admin: 06/20/24 16:18 Dose: 100 mg Chlorpromazine HCl (Chlorpromazine Hcl 25 Mg/Ml Ampul) 150 mg IM BID PRN PRN Reason: if pt refuses PO-Horner order Chlorpromazine HCl (Chlorpromazine Hcl 25 Mg Tablet) 150 mg PO BID [facility] Last Admin: 06/24/24 08:44 Dose: 150 mg Diphenhydramine HCl (Diphenhydramine Hcl 25 Mg Capsule) 50 mg PO Q6H PRN PRN Reason: agitation Guanfacine HCl (Guanfacine Hcl Er 1 Mg Tab.Er.24h) 1 mg PO DAILY [facility] Last Admin: 06/24/24 08:43 Dose: 1 mg Magnesium Hydroxide (Milk Of Magnesia 30 Ml Oral.Susp) 30 ml PO DAILY PRN PRN Reason: Constipation Nicotine (Nicotine 21 Mg Patch.Td24) 21 mg TRANSDERMA DAILY PRN PRN Reason: nicotine cravings Nicotine Polacrilex (Nicotine Polacrilex 2 Mg Gum) 4 mg BUCCAL Q2H PRN PRN Reason: Nicotine Cravings Prazosin HCl (Prazosin Hcl 1 Mg Capsule) 1 mg PO BEDTIME PRN; Protocol PRN Reason: nightmares Trazodone HCl (Trazodone Hcl 50 Mg Tablet) 50 mg PO BEDTIME MRX1 PRN PRN Reason: Insomnia Last Admin: 06/20/24 21:40 Dose: 50 mg Allergies Allergies Allergy/AdvReac Type Severity Reaction Status Date / Time No Known Allergies Allergy Verified 06/13/24 21:11 Assessment & Plan Assessment & Plan (1) Schizophrenia: Status: Acute Code(s): F20.9 - Schizophrenia, unspecified Plan Schizophrenia. Plan: Admit, CV, TDN, 15 minute checks Re-establish regime Clozapine titration 50 mg to begin with today. Collateral contact 06/16: Increase Clozaril to 25 mg in AM and 50 mg HS starting tomorrow. Thorazine as back up (Thorazine on [place] order) if patient refuses PO Clozaril. : Continue titration of Clozaril per primary team. Continue current management and treatment plan. 06/18: Increase HS Clozaril to 75 mg. Continue AM Clozaril of 25 mg. TDN to 06/20. 06/20: Section Seven filed Continue Clozaril titration. 06/22: DC Clozaril-refused labs,dosing DC [place]-refused labs, dosing Increase Chlorpromazine to 150 mg bid 06/23: Continue current regimen and plans for stabilization and medication management 06/24: Continue current regimen and plans for stabilization and medication management Reason for continued inpatient stay Substantial Risk for: med/psych decompensation Time Spent With Patient Time: Total time managing care of this patient today ____ minutes.
[2024-06-24] MEDS: Benztropine Mesylate 1 MG TABLET PO (20:36)
[2024-06-25 08:00] VITALS: BP 135/92; PULSE 118; TEMP 36.3; O2SAT 99
[2024-06-25] MEDS: guanFACINE HCl ER 1 MG TAB.ER.24H PO (09:06)
[2024-06-25] MEDS: chlorproMAZINE HCl 25 MG TABLET 150 MG PO (09:07)
--- NOTE | 2024-06-25 09:16 | PC.NURSE ---
Taylor's BP this morning was 134/92 and HR 118. Taylor refused vital signs to be retaken and refused morning labs to be drawn. Taylor has been presenting as irritable and internally preoccupied this morning AEB her self-dialoguing and giggling in her bedroom. Brian, LINING [employer] made aware via [employer]. Will continue to monitor patient.
--- NOTE | 2024-06-25 16:12 | HO.PSYCHPN ---
Subjective Subjective Date of Service: 06/25/24 Reason For Visit: schizophrenia Subjective Notes: Section 7 Healthcare Proxy: No Guardianship: Yes Medical Problems Affecting Mental Status: No Interim History: Discussed with pt and team if she will allow referrals to [facility] programs. She declines, stating she will see the ip technology transactions attorney tomorrow, leave the hospital, and decide which program she will present to and possibly ask to stay. Today, focus was having her cell phone on her person. Education provided about HIPPA violations, hospital policy of not allowing cell phones on the unit. Pt asks that we call the orthodontist small business owner of the hospital to get permission for her to have her cell. Pt discussed this with the nursing techn as well and has asked to meet with the director to discuss this. Medication Compliance: Yes Side effects from medications: No Attending Groups: Intermittent Review of Systems Acute medical concerns: No Medical Review of Systems: unchanged Review of Systems Review of Systems Denies Mental Status Exam Mental Status Exam Patient Appearance: Appropriate Patient Orientation: Person, Place and Situation Level of Consciousness: Alert Patient Behavior: Talkative, Hyperactive, Cooperative, Suspicious, Resistive to Care, Distractible, Confused, Good Eye Contact and Impulsive Mood Description: Labile Affect Description: Labile Patient Cognition Impaired: Yes Ability to Follow Directions: Fair Speech Pattern: Spontaneous Speech, Rambling, Cofabulation and Pressured Memory Description: Episodic Impaired Hallucinations: Auditory Thought Process: Racing and Distracted Thought Content: positive for Racing, positive for Circumstantial, positive for Preoccupation and positive for Suicidal Ideation (denies) Depressive Symptoms: Difficulty Concentrating Judgement: Poor Diagnostics Vital Signs (24Hr): Vital Signs - 24 hr 06/25/24 08:00 Temperature 97.3 F Pulse Rate 118 H Blood Pressure 135/92 H Pulse Oximetry 99 Oxygen Delivery Method Room Air BMI result Body Mass Index 38.3 Labs 06/14/24 12:53 06/14/24 12:53 Medications Medications Current Medications Acetaminophen (Acetaminophen 325 Mg Tablet) 650 mg PO Q6H PRN PRN Reason: Headache/Pain Mild Scale (1-3) Al Hydroxide/Mg Hydroxide (Magnesium Hydrox/Alum Hydrox 30 Ml Oral.Susp) 30 ml PO Q6H PRN PRN Reason: Heartburn/Nausea Benztropine Mesylate (Benztropine Mesylate 1 Mg Tablet) 1 mg PO BEDTIME [facility] Last Admin: 06/24/24 20:36 Dose: 1 mg Chlorpromazine HCl (Chlorpromazine Hcl 100 Mg Tablet) 100 mg PO Q6H PRN PRN Reason: AGITATION Last Admin: 06/20/24 16:18 Dose: 100 mg Chlorpromazine HCl (Chlorpromazine Hcl 25 Mg/Ml Ampul) 150 mg IM BID PRN PRN Reason: if pt refuses PO-Horner order Chlorpromazine HCl (Chlorpromazine Hcl 25 Mg Tablet) 150 mg PO BID [facility] Last Admin: 06/25/24 09:07 Dose: 150 mg Diphenhydramine HCl (Diphenhydramine Hcl 25 Mg Capsule) 50 mg PO Q6H PRN PRN Reason: agitation Guanfacine HCl (Guanfacine Hcl Er 1 Mg Tab.Er.24h) 1 mg PO DAILY [facility] Last Admin: 06/25/24 09:06 Dose: 1 mg Magnesium Hydroxide (Milk Of Magnesia 30 Ml Oral.Susp) 30 ml PO DAILY PRN PRN Reason: Constipation Nicotine (Nicotine 21 Mg Patch.Td24) 21 mg TRANSDERMA DAILY PRN PRN Reason: nicotine cravings Nicotine Polacrilex (Nicotine Polacrilex 2 Mg Gum) 4 mg BUCCAL Q2H PRN PRN Reason: Nicotine Cravings Prazosin HCl (Prazosin Hcl 1 Mg Capsule) 1 mg PO BEDTIME PRN; Protocol PRN Reason: nightmares Trazodone HCl (Trazodone Hcl 50 Mg Tablet) 50 mg PO BEDTIME MRX1 PRN PRN Reason: Insomnia Last Admin: 06/20/24 21:40 Dose: 50 mg Allergies Allergies Allergy/AdvReac Type Severity Reaction Status Date / Time No Known Allergies Allergy Verified 06/13/24 21:11 Assessment & Plan Assessment & Plan (1) Schizophrenia: Status: Acute Code(s): F20.9 - Schizophrenia, unspecified Plan Schizophrenia. Plan: Admit, CV, TDN, 15 minute checks Re-establish regime Clozapine titration 50 mg to begin with today. Collateral contact 06/16: Increase Clozaril to 25 mg in AM and 50 mg HS starting tomorrow. Thorazine as back up (Thorazine on [place] [address] order) if patient refuses PO Clozaril. : Continue titration of Clozaril per primary team. Continue current management and treatment plan. 06/18: Increase HS Clozaril to 75 mg. Continue AM Clozaril of 25 mg. TDN to 06/20. 06/20: Section Seven filed Continue Clozaril titration. 06/22: DC Clozaril-refused labs,dosing DC [place]-refused labs, dosing Increase Chlorpromazine to 150 mg bid 06/23: Continue current regimen and plans for stabilization and medication management 06/24: Continue current regimen and plans for stabilization and medication management 06/25: Pt declines [facility] referral. Court 06/26/24. Patient educated on: therapeutic strategies Informed Consent: does not understand Reason for continued inpatient stay Substantial Risk for: harm to self, harm to others, inability to function and rapid decompensation Time Spent With Patient Time: Total time managing care of this patient today ____ minutes.
[2024-06-26 08:00] VITALS: BP 125/66; PULSE 138; RESP 16; TEMP 36.4; O2SAT 96
[2024-06-26] MEDS: guanFACINE HCl ER 1 MG TAB.ER.24H PO (08:43)
[2024-06-26] MEDS: chlorproMAZINE HCl 25 MG TABLET 150 MG PO (08:43)
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
== END 2024-06-26 13:30 | disposition other institution (70) | DRG 750 ==
LOC: HO.ED 22:13 → HO.PM5 06-14 14:47
PROVIDERS: Admitting Provider Clinical Nurse Specialist Psychiatric/Mental Health, Adult; Emergency Provider Emergency Medicine; PCP Pediatrics; Visit Provider Clinical Nurse Specialist Psychiatric/Mental Health, Adult
DX: F20.9 Schizophrenia, unspecified (principal); Z91.148 Patient's other noncompliance with medication regimen for other reason; F17.210 Nicotine dependence, cigarettes, uncomplicated; Z71.6 Tobacco abuse counseling; Z79.899 Other long term (current) drug therapy
CPT/HCPCS: 36415; 80048; 80076; 80307; 81001; 81003; 81025; 85025; 87086; 93005; 99285; S9485

== ENCOUNTER → 2024-06-14 13:46 | Outpatient (BNV) | payer MEDICAID, SELFPAY | PROVIDERS: Admitting Provider Clinical Nurse Specialist Psychiatric/Mental Health, Adult; Emergency Provider Emergency Medicine; PCP Pediatrics; Visit Provider Internal Medicine Cardiovascular Disease | DX: Z01.818 Encounter for other preprocedural examination (principal) | CPT/HCPCS: 93010 ==

== ENCOUNTER → 2024-06-14 14:44 | Outpatient (BNV) | payer OTHER, SELFPAY | PROVIDERS: Admitting Provider Clinical Nurse Specialist Psychiatric/Mental Health, Adult; Emergency Provider Emergency Medicine; PCP Pediatrics; Visit Provider Clinical Nurse Specialist Psychiatric/Mental Health, Adult | DX: F20.0 Paranoid schizophrenia (principal) | CPT/HCPCS: 99231; 99232 ==